=== PATIENT | female | born 1970 | race Caucasian/White ===

== ENCOUNTER 2018-10-12 21:07 | Emergency (ER) | payer MEDICARE, MEDICAID ==
[~2018-10-12] VITALS: Ht 180.3 cm; Wt 81.8 kg
[2018-10-13] MEDS ORDERED: normal saline 1000ML IV soln IVB ONE (00:20)
[2018-10-13] MEDS ORDERED: LIDOcaine 1% w/epiNEPHrine 1:200,000 30ml vial IM ONE (00:20)
[2018-10-13] MEDS ORDERED: TETanus/Pertussis (Acell)/Diphther VAC/PF (Tdap-Adult) 0.5ml syringe IM ONE (00:20)
[2018-10-13] MEDS ORDERED: HYDROcodone/acetaminophen 10/325mg tab PO ONE (00:20)
[2018-10-13 02:26] VITALS: BP 130/90
== END 2018-10-13 02:28 | disposition home or self-care (01) ==
LOC: ER 21:08
DX: S63.253A Unspecified dislocation of left middle finger, initial encounter (principal); S40.022A Contusion of left upper arm, initial encounter; S80.812A Abrasion, left lower leg, initial encounter; G43.909 Migraine, unspecified, not intractable, without status migrainosus; I48.91 Unspecified atrial fibrillation; R00.0 Tachycardia, unspecified; Y08.89XA Assault by other specified means, initial encounter; Y93.89 Activity, other specified; Y92.098 Other place in other non-institutional residence as the place of occurrence of the external cause; Y99.8 Other external cause status
CPT/HCPCS: 26770; 73140; 90471; 90715; 93005; 99284; J3490; J7030